=== PATIENT | female | born 2000 | race American Indian/Alaskan Native ===

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

== ENCOUNTER 2021-02-27 08:26 | Emergency (ER) | payer OTHER ==
[2021-02-27 08:51] VITALS: BP 143/60
--- NOTE | 2021-02-27 10:22 | Emergency Department Report ---
ED Female HPI - General Chief complaint: Urogenital-Female Stated complaint: VAGINAL ISSUES/CP Time Seen by Provider: 02/27/21 09:38 Source: patient Mode of arrival: Ambulatory Limitations: No Limitations - History of Present Illness Initial comments: 20-year-old female with a past medical history of asthma presents to the ER today with complaints of vaginal discharge and shortness of breath. Patient states that for the past week she has been having white thick vaginal discharge. She denies any odor. She denies any pelvic pain, low abdominal pain or back pain. She states that she has had the same sexual partner for the past 3-1/2 years. He states that she has had chlamydia before in the past. She states that she is 6 days late on her menstrual cycle. She is not currently on any control. She denies any UTI symptoms, nausea, vomiting, fever or chills. Patient also complains of shortness of breath, but this only occurs sporadically when she sometimes drink fluids or eat. She states that she would feel like the food or liquid gets stuck and she feels like she is choking and then she starts getting short of breath. She states that this occurred last year and she went to the ER and told she had pneumonia. She states that it occurred again 2 weeks ago and has not occurred since. She denies any associated wheezing, chest pain, cough, or URI symptoms. She states "no one" has been able to tell her what is causing it. Complaint: vaginal discharge - Related Data Previous Rx's Medication Instructions Recorded Last Taken Type Doxycycline Hyclate [Doxycycline 100 mg PO Q12HR #14 tab 02/27/21 Unknown Rx Hyclate TAB] Fluconazole [Diflucan TAB] 200 mg PO QDAY #2 tablet 02/27/21 Unknown Rx metroNIDAZOLE [Flagyl] 500 mg PO Q12HR #14 tab 02/27/21 Unknown Rx Allergies Allergy/AdvReac Type Severity Reaction Status Date / Time No Known Allergies Allergy Verified 02/27/21 08:50 ED Review of Systems ROS: Stated complaint: VAGINAL ISSUES/CP Other details as noted in HPI Comment: All other systems reviewed and negative Constitutional: denies: chills, fever Eyes: denies: eye pain, eye discharge, vision change ENT: denies: ear pain, throat pain, dental pain, hearing loss, epistaxis, congestion Respiratory: shortness of breath. denies: cough, orthopnea, SOB with exertion, SOB at rest, stridor, wheezing Cardiovascular: denies: chest pain, palpitations, dyspnea on exertion, edema, syncope, paroxysmal nocturnal dyspnea Endocrine: no symptoms reported Gastrointestinal: denies: abdominal pain, nausea, vomiting, diarrhea, constipation, hematemesis, melena, hematochezia Genitourinary: denies: urgency, dysuria, frequency, hematuria, discharge, abnormal menses, dyspareunia Musculoskeletal: denies: back pain, joint swelling, arthralgia, myalgia Skin: denies: rash, lesions, change in color, change in hair/nails, pruritus Neurological: denies: as per HPI, headache, weakness, numbness, paresthesias, confusion, abnormal gait Psychiatric: denies: anxiety, depression, auditory hallucinations, visual hallucinations, homicidal thoughts Hematological/Lymphatic: denies: easy bleeding, easy bruising ED Past Medical Hx - Past Medical History Hx Asthma: Yes - Medications Home Medications: Home Medications Medication Instructions Recorded Confirmed Last Taken Type Doxycycline Hyclate [Doxycycline 100 mg PO Q12HR #14 tab 02/27/21 Unknown Rx Hyclate TAB] Fluconazole [Diflucan TAB] 200 mg PO QDAY #2 tablet 02/27/21 Unknown Rx metroNIDAZOLE [Flagyl] 500 mg PO Q12HR #14 tab 02/27/21 Unknown Rx ED Physical Exam - General Limitations: No Limitations General appearance: alert, in no apparent distress - Head Head exam: Present: atraumatic, normocephalic, normal inspection - Eye Eye exam: Present: normal appearance, PERRL, EOMI Pupils: Present: normal accommodation - ENT ENT exam: Present: normal exam, mucous membranes moist, TM's normal bilaterally - Neck Neck exam: Present: normal inspection, full ROM. Absent: meningismus - Respiratory Respiratory exam: Present: normal lung sounds bilaterally. Absent: respiratory distress, wheezes, rales, rhonchi - Cardiovascular Cardiovascular Exam: Present: regular rate, normal rhythm, normal heart sounds - GI/Abdominal GI/Abdominal exam: Present: soft. Absent: distended, tenderness, guarding, rebound - Neurological Exam Neurological exam: Present: alert, oriented X3, CN II-XII intact, normal gait - Psychiatric Psychiatric exam: Present: normal affect, normal mood - Skin Skin exam: Present: intact ED Course Vital Signs 02/27/21 08:50 Temperature 98.7 F Pulse Rate 80 Respiratory 18 Rate Blood Pressure 143/60 O2 Sat by Pulse 98 Oximetry ED Medical Decision Making - Radiology Data Radiology results: report reviewed Patient: HAM SARMIENTO MR#: [id number] : 2000 Acct:[id number] Age/Sex: 20 / F ADM Date: 02/27/21 Loc: ED Attending Dr: Ordering Physician: EJ JOHNSON Date of Service: 02/27/21 Procedure(s): XR chest routine 2V Accession Number(s): [id number] cc: EJ JOHNSON Fluoro Time In Minutes: CHEST 2 VIEWS INDICATION / CLINICAL INFORMATION: sob. COMPARISON: None available. FINDINGS: SUPPORT DEVICES: None. HEART / MEDIASTINUM: No significant abnormality. LUNGS / PLEURA: No significant pulmonary or pleural abnormality. No pneumothorax. ADDITIONAL FINDINGS: No significant additional findings. IMPRESSION: 1. No acute findings. Signer Name: Clinton Antoine DO Signed: 02/27/2021 11:38 AM Workstation Name: [id number] Transcribed By: EVI Dictated By: CLINTON ANTOINE DO Electronically Authenticated By: CLINTON ANTOINE DO Signed Date/Time: 02/27/211137 DD/ 37 TD/TT: - Medical Decision Making Pt is well appearing, not toxic, and not in any pain or respiratory distress playing on her phone. She has no stridor on exam and is tolerating her secretions well. Her airway appears to be intact. Her vital signs are stable. chest x-ray shows nothing acute. Urinalysis negative for UTI. hCG also negative. She been having vaginal discharge but no pelvic or abdominal pain. She was treated prophylactically for GC as well as BV, trichomonas and yeast. Informed patient that she may need to see GI specialist for upper GI if she feels like her food or liquid is getting stuck when she drinks or eat. She will likely need an an endoscopy. At this time there is no indication for any additional lab testing or imaging, admission or specialist consult. Patient exp ressed understanding of all instructions and agree with plan. Patient was stable at time of discharge. Critical care attestation.: If time is entered above; I have spent that time in minutes in the direct care of this critically ill patient, excluding procedure time. ED Disposition Clinical Impression: Vaginal discharge, Dysphagia, Dyspnea Disposition: 01 HOME / SELF CARE / HOMELESS Is pt being admited?: No Does the pt Need Aspirin: No Condition: Stable Instructions: Shortness of Breath, Adult, [id number], Vaginitis, [id number]-[id number], Dysphagia Additional Instructions: I recommend that you take Flagyl and the doxycycline as prescribed. Take the Diflucan now, and another one after completing the course of Flagyl and doxycycline. I do recommend that you partner also get tested and treated. I recommend you follow-up with us primary care doctor and or GI specialist to further evaluate your difficulty swallowing episodes. You may need the endoscopy. Return to the ER if your symptoms changes or worsens in any way. Prescriptions: Fluconazole [Diflucan TAB] 200 mg PO QDAY #2 tablet Doxycycline Hyclate [Doxycycline Hyclate TAB] 100 mg PO Q12HR #14 tab metroNIDAZOLE [Flagyl] 500 mg PO Q12HR #14 tab Referrals: [facility] [Provider Group] - 3-5 Days [facility] [Provider Group] - 3-5 Days Forms: Work/School Release Form(ED) Time of Disposition: 11:51
[2021-02-27 11:02] LABS: Bilirubin,Urine NEG (Negative); Blood,Urine MOD (Negative); Color,Urine Yellow (Yellow); Mucus,Urine FEW /HPF; Protein,Urine <15 mg/dL mg/dL (Negative); Urobilinogen,Urine < 2.0 mg/dL (<2.0)
[2021-02-27 11:04] LABS: HCG Qualitative,Urine Negative (Negative)
[2021-02-27] MEDS ORDERED: LIDOCAINE-MPF (1%) 10 MG/1 ML VIAL 5 ML INFILTRATI ONE (11:13)
--- NOTE | 2021-02-27 11:43 | XRay Report ---
CHEST 2 VIEWS INDICATION / CLINICAL INFORMATION: sob. COMPARISON: None available. FINDINGS: SUPPORT DEVICES: None. HEART / MEDIASTINUM: No significant abnormality. LUNGS / PLEURA: No significant pulmonary or pleural abnormality. No pneumothorax. ADDITIONAL FINDINGS: No significant additional findings. IMPRESSION: 1. No acute findings. Signer Name: Clinton Antoine DO Signed: 02/27/2021 11:38 AM Workstation Name: [id number]
== END 2021-02-27 12:20 | disposition home or self-care (01) ==
LOC: ED 08:26
DX: N89.8 Other specified noninflammatory disorders of vagina (principal); R13.10 Dysphagia, unspecified; R06.00 Dyspnea, unspecified; J45.909 Unspecified asthma, uncomplicated; Z79.899 Other long term (current) drug therapy
CPT/HCPCS: 71046; 81001; 81025; 96372; 99283; J0696

== ENCOUNTER 2022-02-25 00:38 | Emergency (ER) | payer OTHER ==
[2022-02-25 03:44] VITALS: BP 137/82
== END 2022-02-25 10:05 | disposition left against medical advice (07) ==
LOC: ED 00:38
DX: J45.909 Unspecified asthma, uncomplicated (principal); G43.909 Migraine, unspecified, not intractable, without status migrainosus; Z53.21 Procedure and treatment not carried out due to patient leaving prior to being seen by health care provider